=== PATIENT | female | born 1995 | race Caucasian/White ===

== ENCOUNTER 2019-11-24 14:39 | Emergency (ER) | payer OTHER ==
--- NOTE | 2019-11-24 15:46 | ER Document Report ---
ED Medical Screen (RME) - General Chief Complaint: Vaginal Bleeding Stated Complaint: VAGINAL BLEEDING/CRAMPING Time Seen by Provider: 11/24/19 15:36 TRAVEL OUTSIDE OF THE [place] IN LAST 30 DAYS: No - HPI Notes: 11/24/19 15:43 24-year-old female presents to the emergency room for evaluation of vaginal bleeding that started approximately 2 days ago. Patient states she is going through 1 pad an hour. Patient is typically seen by [facility] in June 2018 she did have a laparoscopic procedure to check for endometriosis which was negative, denies any pregnancies, denies ever being , has not been on control June 2018. Patient states she was checked for STDs back in May 2019 which she did have chlamydia, which she was treated for. States she was with a different partner at this time. Denies any fevers or chills. Patient states last menstrual period was 1 week ago. I have greeted and performed a rapid initial assessment of this patient. A comprehensive ED assessment and evaluation of the patient, analysis of test results and completion of the medical decision making process will be conducted by additional ED providers. PHYSICAL EXAMINATION: GENERAL: Well-appearing, well-nourished and in no acute distress. CV: s1, s2 regular LUNGS: No respiratory distress Musculoskeletal: Normal range of motion NEUROLOGICAL: Normal speech, normal gait. SKIN: Warm, Dry, normal turgor, no rashes or lesions noted. - Related Data Allergies/Adverse Reactions: No Known Allergies Allergy (Unverified 11/24/19 15:35) Home Medications: Zoloft. Holly
[2019-11-24 16:00] VITALS: BP 124/65
--- NOTE | 2019-11-24 17:11 | RADIOLOGY REPORT (SQ) ---
EXAM DESCRIPTION: U/S NON OB PEL TV W/DOPPLER COMPLETED DATE/TIME: 11/24/2019 4:51 pm REASON FOR STUDY: vaginal bleeding, no bc, +sexually active COMPARISON: None. TECHNIQUE: Dynamic and static grayscale images acquired of the pelvis via transvaginal approach and recorded on PACS. Additional selected color Doppler and spectral images recorded. LIMITATIONS: None. FINDINGS: STATUS: Unknown. UTERUS: The uterus measures 6.8 x 3.3 x 5.1 cm. The echotexture of the myometrium is homogeneous. ENDOMETRIAL STRIPE: The endometrial canal is distended and filled with heterogeneous material. There is no Doppler flow within the endometrium. CERVIX: The cervix measures 3.3 cm in length. There is a trace amount of fluid within the endocervic al canal. RIGHT OVARY AND DOPPLER: The right ovary measures 3.2 x 2.1 x 1.7 cm and on Doppler there is intact a rterial inflow and venous outflow within the ovarian stroma. There is no adnexal mass. LEFT OVARY AND DOPPLER: The left ovary measures 5 x 2.7 x 3.8 cm and on Doppler there is intact arter ial inflow and venous outflow within the ovarian stroma. There is an anechoic structure within the l eft ovary that contains a daughter cyst and measures 3.2 x 3.1 x 2.2 cm. FREE FLUID: None noted. OTHER: No other finding. IMPRESSION: 1. The endometrial canal is distended and filled with heterogeneous material. The mate rial could represent hemorrhagic products. 2. Anechoic structure with a daughter cyst in the left ovary that measures 3.2 x 3.1 x 2.2 cm consis tent with a functional ovarian cyst. 3. No evidence of ovarian torsion. TECHNICAL DOCUMENTATION: JOB ID: [id number] 2010 [email or web address]- All Rights Reserved Rev-02/21 Reading location - IP/workstation name: [email or web address]
[2019-11-24 17:38] LABS: ABSOLUTE EOSINOPHILS # (AUTO) 0.1 10^3/uL (0.0-0.6); ABSOLUTE LYMPHOCYTES (AUTO) 1.4 10^3/uL (0.5-4.7); ABSOLUTE MONOCYTES (AUTO) 0.5 10^3/uL (0.1-1.4); ABSOLUTE NEUT (AUTO) 3.9 10^3/uL (1.7-8.2); BASOPHILS % (AUTO) 0.4 % (0-2); EOSINOPHILS % (AUTO) 1.6 % (0-6); HEMATOCRIT 37.2 % (36.0-47.0); MEAN CORPUSCULAR HEMOGLOBIN 31.5 pg (27.0-33.4); MEAN CORPUSCULAR HGB CONC 34.9 g/dL (32.0-36.0); MEAN CORPUSCULAR VOLUME 90 fl (80-97); MONOCYTES % (AUTO) 8.7 % (3-13); PLATELET COUNT 196 10^3/uL (150-450); RED BLOOD COUNT 4.11 10^6/uL (3.72-5.28); RED CELL DISTRIBUTION WIDTH 12.8 % (11.5-14.0); SEGMENTED NEUTROPHILS % (AUTO) 66.3 % (42-78); TOTAL CELLS COUNTED % (AUTO) 100 %; WHITE BLOOD COUNT 5.9 10^3/uL (4.0-10.5)
[2019-11-24 17:49] LABS: APPEARANCE,URINE CLEAR; BILIRUBIN,URINE NEGATIVE (NEGATIVE); COLOR,URINE YELLOW; GLUCOSE, URINE NEGATIVE (NEGATIVE); KETONES,URINE NEGATIVE (NEGATIVE); LEUKOCYTE ESTERASE,URINE NEGATIVE (NEGATIVE); NITRITE,URINE NEGATIVE (NEGATIVE); PROTEIN,URINE NEGATIVE (NEGATIVE); URINE SPECIFIC GRAVITY 1.021; UROBILINOGEN,URINE NEGATIVE mg/dL (<2.0)
[2019-11-24 17:50] LABS: ALBUMIN 4.9 g/dL (3.5-5.0); ALKALINE PHOSPHATASE 47 U/L (38-126); ANION GAP 14 (5-19); ASPARTATE AMINO TRANSFERASE 21 U/L (14-36); BILIRUBIN,DIRECT 0.2 mg/dL (0.0-0.4); BILIRUBIN,TOTAL 0.4 mg/dL (0.2-1.3); BLOOD UREA NITROGEN 13 mg/dL (7-20); CALCIUM 9.7 mg/dL (8.4-10.2); CARBON DIOXIDE 24 mmol/L (22-30); CHLORIDE 105 mmol/L (98-107); GLUCOSE 87 mg/dL (75-110); POTASSIUM 3.9 mmol/L (3.6-5.0); TOTAL PROTEIN 8.2 g/dL (6.3-8.2)
--- NOTE | 2019-11-24 17:59 | ER Document Report ---
ED GI/ - General Chief Complaint: Vaginal Bleeding Stated Complaint: VAGINAL BLEEDING/CRAMPING Time Seen by Provider: 11/24/19 15:36 Primary Care Provider: [facility] [Provider Group] - Follow up in 3-5 days [facility] [Primary [facility]] - Follow up as needed Notes: Patient is a 24-year-old female who presents to the emergency department with vaginal bleeding. Patient states that she has had 2 days of vaginal bleeding. Patient has history of chlamydia. She is currently sexually active, but states that she is not active with the person she had chlamydia with. Patient was treated for chlamydia. She also had laparoscopy done by her [facility] to check for cysts. Patient states that her last menstrual cycle was November 08. She denies any rough sex. TRAVEL OUTSIDE OF THE [place] IN LAST 30 DAYS: No - Related Data Allergies/Adverse Reactions: No Known Allergies Allergy (Unverified 11/24/19 15:35) Home Medications: Zoloft. Vivance Past Medical History - General Last Menstrual Period: 11/08/2019 - Social History Smoking Status: Never Smoker Family History: Reviewed & Not Pertinent Patient has suicidal ideation: No Patient has homicidal ideation: No Review of Systems - Review of Systems Notes: REVIEW OF SYSTEMS: CONSTITUTIONAL : Denies recent illness. Denies recent unintentional weight loss. Denies fever, chills, or sweats. EENT: Denies eye, ear, throat, or mouth pain, discharge, or symptoms. Denies nasal or sinus congestion. CARDIOVASCULAR: Denies chest pain. RESPIRATORY: Denies shortness of breath, cough, congestion, difficulty breathing, or wheezing. GASTROINTESTINAL: Denies nausea, vomiting, and diarrhea. Denies abdominal pain. Denies constipation. GENITOURINARY: Denies difficulty urinating, burning, blood in urine, urgency or frequency. FEMALE GENITOURINARY: See HPI. MUSCULOSKELETAL: Denies neck and back pain. Denies joint pain or swelling. SKIN: Denies rash, itchiness, or lesions HEMATOLOGIC : Denies easy bruising or bleeding. LYMPHATIC: Denies swollen, painful, enlarged glands. NEUROLOGICAL: Denies no numbness or tingling denies weakness. Denies headache. Denies altered mental status. Denies alteration in speech. PSYCHIATRIC: Denies stress, anxiety, alteration in sleep patterns, or depres axel. All other systems reviewed and negative. How you do Physical Exam - Vital signs Vitals: Temp Pulse Resp BP Pulse Ox 98.4 F 70 16 124/65 100 11/24/19 15:34 11/24/19 15:34 11/24/19 15:34 11/24/19 15:34 11/24/19 15:34 - Notes Notes: PHYSICAL EXAMINATION: GENERAL: Appears well, healthy, well-nourished, no acute distress. HEAD: Normocephalic, atraumatic. EYES: PERRL, conjunctiva normal, all extraocular movements intact, sclera nonicteric ENT: Moist mucous membranes. NECK: Supple, no noticeable swelling, redness, rash. Normal range of motion. LUNGS: Equal breath sounds bilaterally and clear to auscultation. No wheezes rales or rhonchi. CARDIOVASCULAR: S1-S2, regular rate, regular rhythm. Radial pulses 2+, normal. ABDOMEN: Normoactive bowel sounds. Soft, nontender, no guarding, no rebound tenderness, and no masses palpated. EXTREMITIES: Normal strength and range of motion, no pitting or edema. No cyanosis. NEUROLOGICAL: Moves all extremities upon command. Strength 5/5 in all extremities. PSYCH: Normal mood, normal affect. SKIN: Warm, dry. No rash, lesions, ulcerations noted. Normal skin turgor. 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 Course - Re-evaluation Re-evalutation: 11/24/19 18:59 GERALDINE Burrows was at bedside for asset analyst during pelvic exam. Patient's hematology is unremarkable. Chemistries are also unremarkable. Patient has a small amount of blood noted on her urinalysis. Patient has 3+ bacteria noted. No trichomonas or yeast noted. I suspect that the patient is having irregular menstrual bleeding. She does have an ovarian cyst noted on her ultrasound. She will follow[facility]up with [facility] in regards to this visit. She is in agreement with this plan. I have very low suspicion for pelvic infl ammatory disease. - Vital Signs Vital signs: Temp Pulse Resp BP Pulse Ox 98.4 F 70 16 124/65 100 11/24/19 15:34 11/24/19 15:34 11/24/19 15:34 11/24/19 15:34 11/24/19 15:34 - Laboratory Result Diagrams: 11/24/19 17:13 11/24/19 17:13 Laboratory results interpreted by me: 11/24/19 16:50 Urine Blood SMALL H Discharge - Discharge Clinical Impression: Vaginal bleeding Ovarian cyst Qualifiers: Laterality: unspecified laterality Qualified Code(s): N83.209 - Unspecified ovarian cyst, unspecified side Condition: Stable Disposition: HOME, SELF-CARE Additional Instructions: You were seen today in the emergency department for vaginal bleeding. Your ultrasound showed that you had an ovarian cyst and is most likely because you are at the time of ovulation. Your labs were normal. Please follow-up with [facility] in regards to this visit. Forms: Return to Work Referrals: [facility] [Primary Care Provider] - Follow up as needed [facility] [Provider Group] - Follow up in 3-5 days
[2019-11-24 18:27] LABS: BACTERIA (WET MOUNT) 3+ BACTERIA SEEN; RBCS (WET MOUNT) 4+ RBCS SEEN; T.VAGINALIS (WET MOUNT) NO TRICHOMONAS SEEN; WBCS (WET MOUNT) FEW WBCS SEEN; YEAST (WET MOUNT) NO YEAST SEEN
[2019-11-24 19:58] LABS: CHLAM PCR NOT DETECTED (NOT DETECT)
== END 2019-11-24 19:15 | disposition home or self-care (01) ==
LOC: ER 14:39
DX: N83.292 Other ovarian cyst, left side (principal); N93.8 Other specified abnormal uterine and vaginal bleeding
CPT/HCPCS: 36415; 76830; 80053; 81001; 81025; 85025; 87210; 87491; 87591; 93976; 99284